=== PATIENT | female | born 1970 | race Caucasian/White ===

== ENCOUNTER 2022-07-26 09:25 | Emergency (ER) | payer OTHER, SELFPAY ==
--- NOTE | ~2022-07-26 | CT_ITS ---
EXAMINATION: CT ANGIOGRAM CHEST WITH CONTRAST CT ANGIOGRAM ABDOMEN AND PELVIS WITH CONTRAST CLINICAL INFORMATION: Chest pain with left arm radiation and jaw radiation. Hypertension. Aorta evaluation. COMPARISON: CXR from 07/26/2022 TECHNIQUE: Prior to contrast administration, noncontrast localization images were obtained. Subsequently, multidetector volumetric imaging was performed through the chest, abdomen pelvis following the administration of 80 mL Omnipaque 350 intravenous contrast. No contrast reaction reported. Sagittal, coronal, and MIP oblique sagittal reformatted images were obtained on the CT workstation, uploaded to PACS, and reviewed. This CT examination was performed using dose optimization techniques as appropriate, variously including the following: *Automated exposure control *Adjustment of mA and/or kV according to patient size (this includes techniques or standardized protocols for targeted exams where dose is matched to indication/reason for exam; i.e. extremities or head) *Use of iterative reconstruction technique DLP: Total exam dose-length product 634 mGy-cm FINDINGS: CHEST - LUNGS AND PLEURA: Small amount mucus along the tracheal wall and within mainstem bronchi. Mild centrilobular and paraseptal emphysema of the upper lobes. Mild mosaic attenuation of the lungs. The bronchial whitfield are mildly thickened. Query if there is any history of chronic cigarette smoking. No evidence of pulmonary edema, consolidation or pleural effusion. No pneumothorax. CARDIOVASCULAR: The heart size is normal. No pericardial effusion. Pulmonary arteries are normal in caliber and there are no embolic filling defects in the main, lobar or segmental vessels. The thoracic aorta has normal caliber and contour; no intramural hematoma, aneurysm or dissection. At the level of the right pulmonary artery, the ascending thoracic aorta 3.4 cm transverse diameter and descending aorta 2.8 cm transverse diameter. The great vessels arising from the top of the aortic arch are widely patent. MEDIASTINUM/LOWER NECK: No mediastinal mass. The visualized portion of the thyroid gland and esophagus are unremarkable. No pneumomediastinum. LYMPHATICS: No pathologic sized axillary, hilar or mediastinal lymph nodes. A right hilar lymph node has a short axis measurement of 0.8 cm, as measured on coronal reformatted images. CHEST WALL/BONES: No chest wall mass or hematoma. Mild spondylosis of the thoracic spine. Thoracic vertebra have normal height and alignment. No suspicious osseous lesions within the thorax. No rib or sternal fracture. Bones of the visualized shoulders are unremarkable. ABDOMEN AND PELVIS - HEPATOBILIARY: Liver has normal size, contour and attenuation. No liver mass. Gallbladder is normal. No intrahepatic or extrahepatic bile duct dilatation. PANCREAS: No edema, mass or pancreatic ductal dilatation. SPLEEN: Normal. ADRENAL GLANDS: Normal. KIDNEYS AND URETERS: Kidneys are normal in size and enhance symmetrically. No nephrolithiasis, hydronephrosis or perinephric edema. The ureters are unremarkable. There are two small simple cortical cysts of the right kidney. No renal imaging follow-up is recommended for simple cysts. BOWEL AND PERITONEUM: No dilated loops of bowel. The appendix is normal. No focal bowel wall thickening. No mesenteric fat stranding, ascites or pneumoperitoneum. ABDOMINAL WALL: Unremarkable. VESSELS: Abdominal aorta is normal in size; no aneurysm or dissection. Mild atherosclerotic calcification of the aorta. The celiac trunk and its branches are widely patent. Also, there is no significant stenosis of the SMA, JANETTE or renal arteries. There is scattered atherosclerotic plaque of iliac arteries without iliac artery aneurysm. LYMPH NODES: No pathologic sized lymph nodes in the abdomen or pelvis. No inguinal lymphadenopathy. BLADDER AND PELVIC VISCERA: Urinary bladder is normal. A contraceptive device appears to be appropriately positioned within the endometrium. No evidence of uterine or adnexal mass. No pelvic free fluid. MUSCULOSKELETAL: The lumbar vertebra have normal height and alignment, and lumbar disc spaces are maintained. Pelvic bones and proximal femurs are intact. CT/CT angio abdomen pelvis IMPRESSION: * No acute imaging findings in the chest, abdomen or pelvis. No aortic aneurysm or dissection. * No pulmonary embolism or other acute vascular abnormality. * Mild centrilobular and paraseptal emphysema of the upper lobes.
--- NOTE | ~2022-07-26 | XR_ITS ---
EXAMINATION: XR CHEST CLINICAL INFORMATION: Chest pain. COMPARISON: None TECHNIQUE: 2 views of the chest were obtained. FINDINGS: No significant abnormality is noted involving the heart, lungs, mediastinum, bony thorax or soft tissues. XR/XR chest 2V IMPRESSION: Unremarkable examination.
--- NOTE | 2022-07-26 09:26 | ECG_ITS ---
Test Reason : chest pain Blood Pressure : / mmHG Vent. Rate : 080 BPM Atrial Rate : 080 BPM P-R Int : 150 ms QRS Dur : 080 ms QT Int : 406 ms P-R-T Axes : 056 -11 049 degrees QTc Int : 468 ms Normal sinus rhythm Normal ECG No previous ECGs available Referred By: Generic ED Physician Electronically Signed By:CALVIN GARCIA
[2022-07-26 09:27] VITALS: BP 213/106; PULSE 73; RESP 20; TEMP 35.9; O2SAT 100; BMI 28.3
[2022-07-26 09:46] LABS: MANUAL DIFF FLAG NO
[2022-07-26 09:48] LABS: Basophils Absolute Auto 0.1 X10*3/uL (0.0-0.2); Basophils Percent Auto 1.6 % (0-2); Eosinophils Absolute Auto 0.2 X10*3/uL (0.0-0.4); Eosinophils Percent Auto 2.5 % (0-4); Hematocrit 47.4 % (37.0-47.0); Hemoglobin 15.6 g/dl (12.0-16.0); Imm Gran Abs Auto 0.02 X10*3/uL (0.00-0.03); Imm Gran Pct Auto 0.3 % (0.0-0.4); Lymphocytes Percent Auto 27.6 % (20-40); Mean Corpuscular HGB Conc 32.9 g/dl (31.0-35.0); Mean Corpuscular Hemoglobin 31.9 pg (27.0-33.0); Mean Corpuscular Volume 96.9 fL (80.0-98.0); Mean Platelet Volume 9.7 fL (9.4-12.3); Monocytes Absolute Auto 0.4 X10*3/uL (0.1-1.2); Monocytes Percent Auto 5.1 % (2-11); Neutrophils Absolute Auto 4.6 x10*3/uL (2.0-8.3); Neutrophils Percent Auto 62.9 % (45-73); Platelet Count 344 X10*3/uL (160-400); Red Blood Count 4.89 X10*6/uL (4.20-5.50); Red Cell Distribution Width 14.4 % (11.0-16.0); White Blood Count 7.3 X10*3/uL (4.8-10.8)
[2022-07-26 10:06] LABS: COVID-19 Test Negative (Negative); IDNOW Serial# 16C4AD1C
[2022-07-26 10:18] LABS: Alanine Aminotransferase 9 U/L (0-31); Albumin Level 4.5 g/dL (3.5-5.0); Alkaline Phosphatase 78 U/L (39-117); Anion Gap 18 (12-20); Aspartate Amino Transferase 16 U/L (5-31); Bilirubin Direct 0.2 mg/dL (0.0-0.5); Bilirubin Total 0.4 mg/dL (0.0-1.0); Blood Urea Nitrogen 11 mg/dL (9-16); Calcium 9.4 mg/dL (8.4-10.2); Carbon Dioxide 18 mmol/L (22-29); Chloride 106 mmol/L (96-108); Creatinine Clr Calc Pharmacy 78.3; Estimated Glomerular Filt Rate > 60; Glucose Random 91 mg/dL (60-115); Lipase 31 U/L (8-78); Potassium 5.3 mmol/L (3.3-5.1); Sodium 137 mmol/L (135-145); Total Protein 7.3 g/dL (6.5-8.0)
[2022-07-26 10:19] LABS: Troponin-I High Sensitivity < 3.5 ng/L (<3.5-17.0)
--- NOTE | 2022-07-26 10:35 | ED.CHESTPAIN ---
HPI - Chest Pain General Chief Complaint: Chest Pain Stated Complaint: ? Heart Attack Time Seen by Provider: 07/26/22 10:35 Source: patient Mode of arrival: ambulatory Limitations: no limitations History of Present Illness HPI narrative: Patient is a 51 year old female presenting to the emergency department today with chest pain, left arm pain, left jaw pain, and upper back pain. Patient states that starting at 0700 she began to have midsternal chest pain, pain between her shoulder blade, left arm pain, and left sided jaw pain. Patient states it started when she began walking this morning and hasn't gone away. Patient states that she took ibuprofen and that helped the pain somewhat. Patient denies any dizziness, lightheadedness, abdominal pain, nausea, vomiting, fever, chills, blurry vision, double vision, loss of vision, difficulty breathing, shortness of breath, night sweats, pain with urination, increased urinary frequency, increased urinary urgency, blood in her urine or stool, syncope or a near syncopal episode, recent trauma or falls, bowel incontinence, bladder incontinence, bowel retention, bladder retention, or any other complaints at this time. Patient states that she does not have any history of high blood pressure or cardiac disease. Patient states that she is a half a pack a day smoker. MD complaint: chest pain Onset (ago): hour(s) Prior episodes: No Pain radiation: left arm, back and jaw/teeth Severity: mild Pain scale (0-10): 3 Quality: tightness Relieving factors: nothing Exacerbating factors: nothing Treatment prior to arrival: none Risk Factors Coronary artery disease risk factors: smoking history Related Data On Oral Contraceptives: No Allergies Allergy/AdvReac Type Severity Reaction Status Date / Time valacyclovir [From Valtrex] Allergy Facial Verified 07/26/22 09:32 Swelling Review of Systems Constitutional: Constitutional: Reports no additional constitutional complaints, Denies chills, Denies fever(s) and Denies night sweats Eyes: Eyes: Reports no additional eye complaints, Denies blurry vision, Denies change in vision, Denies diplopia, Denies eye discharge, Denies loss of vision and Denies eye pain ENT: Denies dizziness Cardiovascular: Cardiovascular: Reports no additional cardiovascular complaints, Reports chest pain, Denies lightheadedness, Denies Loss of Consciousness and Denies dyspnea Respiratory: Respiratory: Reports no additional respiratory complaints and Denies dyspnea Gastrointestinal: Gastrointestinal: Reports no additional gastrointestinal complaints, Denies abdominal pain, Denies melena, Denies hematochezia, Denies change in bowel habits and Denies change in stool character Genitourinary: Genitourinary: Denies hematuria, Denies urinary frequency, Denies dysuria, Denies urinary incontinence, Denies urinary hesitancy and Denies urinary urgency Musculoskeletal: Musculoskeletal: Reports no additional musculoskeletal complaints, Reports back pain, Denies numbness and Denies tingling Neurologic: Denies dizziness, Denies loss of vision, Denies numbness and Denies tingling Psychiatric: Psychiatric: Reports no additional psychiatric complaints Endocrine: Endocrine: Reports no additional endocrine complaints Hematologic/Lymphatic: Hematologic/Lymphatic: Reports no additional hematologic/lymphatic complaints Allergic/Immunologic: Allergic/Immunologic: Reports no additional allergic/immunologic complaints PMFSH Past Medical History Attestation statement: The following information was validated with the patient. Source: old records reviewed Social History Social History Advance Directives: No Advance Directives Information Provided: Yes Physical Exam Vital Signs: Vital Signs: Last Vital Signs Temp 96.7 F L 07/26/22 09:27 Pulse 64 07/26/22 12:33 Resp 17 07/26/22 13:10 BP 184/100 H 07/26/22 12:33 Pulse Ox 100 07/26/22 12:33 O2 Del Method 07/26/22 12:33 BMI result Body Mass Index 28.3 Const: General: cooperative, no acute distress, alert and awake Nutritional Appearance: well nourished Orientation/consciousness: patient oriented x3 Limitations: no limitations HEENT: Head: Yes normal to inspection and Yes atraumatic Ears: hearing grossly normal bilaterally and external ears normal General nose exam: Normal external nose present, no nasal discharge noted and no epistaxis Face and sinus: Yes normal facial exam, No abrasion and No laceration Mouth: Normal oral and palatal mucosa present, no drooling and no muffled voice Eyes: General: appearance normal, both eyes and all related structures Periorbital: periorbital findings normal Eyelids: Yes eyelids normal Conjunctivae: conjunctivae normal Pupils: Equal, round and reactive pupils present EOM: EOMs intact bilaterally Neck: Neck: Yes normal visual inspection, Yes full ROM and Yes no lymphadenopathy Chest: Chest palpation & inspection: normal inspection of the chest Resp: Effort & Inspection: normal respiratory effort and able to speak in complete sentences Auscultation: clear to auscultation bilaterally Cardio: Rate: regular rate Rhythm: regular rhythm GI: Inspection: Yes normal to inspection Neuro: General: patient oriented x3 and moves all extremities Cranial nerves: Yes Equal, round and reactive pupils present Cognition (Neuro): normal cognition Motor exam (neuro): 5/5 motor strength present throughout Sensory Exam: Normal double simultaneous stimulation for sensation Coordination: [id number] test normal Extrem: General: Yes normal to inspection, Yes full ROM and Yes capillary refill normal Psych: Appearance: grossly normal Mental Status: mental status grossly normal Affect: normal affect Attitude: cooperative Thought process: Normal thought process present Thought content: Normal thought content present Insight: Good insight present (Psych) MDM - Chest Pain MDM Narrative Medical decision making narrative: Patient is a 51 year old female presenting to the emergency department today with chest tightness, back pain, left arm pain, and left jaw pain. Patient's physical exam was unremarkable. Patient was hypertensive throughout her stay in the department however, the patient was anxious about this non-descript pain.Patient's blood work was unremarkable, including 2 normal troponins. Patient's EKG was unremarkable. Patient's chest x-ray showed no acute process. Patient's CTA chest and abdomen also showed no acute process and no dissection. Patient's heart score is 3, which is considered low risk. I explained my physical exam findings as well as all test results to the patient. I answered all questions asked by the patient. I recommended the patient keep a blood pressure diary at home to bring with her to her follow up PCP visit. Patient received IV Morphine which she stated helped her pain significantly. I stressed the importance of the patient taking her medication as prescribed. I stressed the importance of the patient following up with her primary care provider and a [employer]. I stressed the importance of the patient returning to the emergency department immediately if her symptoms were to worsen or if she were to develop any dizziness, shortness of breath, difficulty breathing, chest pain, blurry vision, loss of vision, nausea, vomiting, abdominal pain, fever, chills, back pain, or any other complaints. Patient verbalized agreement and understanding with this treatment plan and discharge. Medical Records Data Attestation: I reviewed the patient's medical records. Lab Data Attestation: I reviewed the patient's lab results. Result diagrams: 07/26/22 09:41 07/26/22 09:41 Labs: Lab Results 07/26/22 07/26/22 07/26/22 Range/Units 09:41 09:41 09:41 WBC 7.3 (4.8-10.8) X10*3/uL RBC 4.89 (4.20-5.50) X10*6/uL Hgb 15.6 (12.0-16.0) g/dl Hct 47.4 H (37.0-47.0) % MCV 96.9 (80.0-98.0) fL MCH 31.9 (27.0-33.0) pg MCHC 32.9 (31.0-35.0) g/dl RDW 14.4 (11.0-16.0) % Plt Count 344 (160-400) X10*3/uL MPV 9.7 (9.4-12.3) fL Immature Gran % (Auto) 0.3 (0.0-0.4) % Neut % (Auto) 62.9 (45-73) % Lymph % (Auto) 27.6 (20-40) % [place] % (Auto) 5.1 (2-11) % Eos % (Auto) 2.5 (0-4) % Baso % (Auto) 1.6 (0-2) % Lymph # (Auto) 2.0 (1.2-4.9) X10*3/uL [place] # (Auto) 0.4 (0.1-1.2) X10*3/uL Eos # (Auto) 0.2 (0.0-0.4) X10*3/uL Baso # (Auto) 0.1 (0.0-0.2) X10*3/uL Abs Immat Gran (auto) 0.02 (0.00-0.03) X10*3/uL Absolute Neuts (auto) 4.6 (2.0-8.3) x10*3/uL Absolute Nucleated RBC 0.000 (0.0-0.012) X10*3/uL Nucleated RBC % (auto) 0.0 (0.0-0.2) /100WBC Sodium 137 (135-145) mmol/L Potassium 5.3 H (3.3-5.1) mmol/L Chloride 106 (96-108) mmol/L Carbon Dioxide 18 L (22-29) mmol/L Anion Gap 18 (12-20) BUN 11 (9-16) mg/dL Creatinine 0.82 (0.5-1.4) mg/dL Estim Creat Clear Calc 78.3 Estimated GFR > 60 Random Glucose 91 (60-115) mg/dL Calcium 9.4 (8.4-10.2) mg/dL Total Bilirubin 0.4 (0.0-1.0) mg/dL Direct Bilirubin 0.2 (0.0-0.5) mg/dL AST 16 (5-31) U/L ALT 9 (0-31) U/L Alkaline Phosphatase 78 (39-117) U/L Troponin I High Sens < 3.5 (<3.5-17.0) ng/L Total Protein 7.3 (6.5-8.0) g/dL Albumin 4.5 (3.5-5.0) g/dL Lipase 31 (8-78) U/L COVID-19 (BALJIT) (Negative) COVID-19 Clin Com 07/26/22 07/26/22 Range/Units 09:41 12:30 WBC (4.8-10.8) X10*3/uL RBC (4.20-5.50) X10*6/uL Hgb (12.0-16.0) g/dl Hct (37.0-47.0) % MCV (80.0-98.0) fL MCH (27.0-33.0) pg MCHC (31.0-35.0) g/dl RDW (11.0-16.0) % Plt Count (160-400) X10*3/uL MPV (9.4-12.3) fL Immature Gran % (Auto) (0.0-0.4) % Neut % (Auto) (45-73) % Lymph % (Auto) (20-40) % [place] % (Auto) (2-11) % Eos % (Auto) (0-4) % Baso % (Auto) (0-2) % Lymph # (Auto) (1.2-4.9) X10*3/uL [place] # (Auto) (0.1-1.2) X10*3/uL Eos # (Auto) (0.0-0.4) X10*3/uL Baso # (Auto) (0.0-0.2) X10*3/uL Abs Immat Gran (auto) (0.00-0.03) X10*3/uL Absolute Neuts (auto) (2.0-8.3) x10*3/uL Absolute Nucleated RBC (0.0-0.012) X10*3/uL Nucleated RBC % (auto) (0.0-0.2) /100WBC Sodium (135-145) mmol/L Potassium (3.3-5.1) mmol/L Chloride (96-108) mmol/L Carbon Dioxide (22-29) mmol/L Anion Gap (12-20) BUN (9-16) mg/dL Creatinine (0.5-1.4) mg/dL Estim Creat Clear Calc Estimated GFR Random Glucose (60-115) mg/dL Calcium (8.4-10.2) mg/dL Total Bilirubin (0.0-1.0) mg/dL Direct Bilirubin (0.0-0.5) mg/dL AST (5-31) U/L ALT (0-31) U/L Alkaline Phosphatase (39-117) U/L Troponin I High Sens < 3.5 (<3.5-17.0) ng/L Total Protein (6.5-8.0) g/dL Albumin (3.5-5.0) g/dL Lipase (8-78) U/L COVID-19 (BALJIT) Negative (Negative) COVID-19 Clin Com See Note Imaging Data Chest x-ray: Attestation: I personally reviewed and interpreted this imaging study as follows: My impression: No acute process. Radiologist's impression: EXAMINATION: XR CHEST CLINICAL INFORMATION: Chest pain. COMPARISON: None TECHNIQUE: 2 views of the chest were obtained. FINDINGS: No significant abnormality is noted involving the heart, lungs, mediastinum, bony thorax or soft tissues. XR/XR chest 2V IMPRESSION: Unremarkable examination. Dictated By: Isaias Rosario Signed By: Electronically signed by Kong 07/26/22 1037 CTA chest and abdomen/pelvis: Attestation: I personally reviewed and interpreted this imaging study as follows: My impression: No acute process. Radiologist's impression: EXAMINATION: CT ANGIOGRAM CHEST WITH CONTRAST CT ANGIOGRAM ABDOMEN AND PELVIS WITH CONTRAST CLINICAL INFORMATION: Chest pain with left arm radiation and jaw radiation. Hypertension. Aorta evaluation. COMPARISON: CXR from 07/26/2022? TECHNIQUE: Prior to contrast administration, noncontrast localization images were obtained. Subsequently, multidetector volumetric imaging was performed through the chest, abdomen pelvis following the administration of 80 mL Omnipaque 350 intravenous contrast. No contrast reaction reported. Sagittal, coronal, and MIP oblique sagittal reformatted images were obtained on the CT workstation, uploaded to PACS, and reviewed.? This CT examination was performed using dose optimization techniques as appropriate, variously including the following: *Automated exposure control *Adjustment of mA and/or kV according to patient size (this includes techniques or standardized protocols for targeted exams where dose is matched to indication/reason for exam; i.e. extremities or head) *Use of iterative reconstruction technique DLP: Total exam dose-length product 634 mGy-cm FINDINGS: CHEST - LUNGS AND PLEURA:? Small amount mucus along the tracheal wall and within mainstem bronchi. Mild centrilobular and paraseptal emphysema of the upper lobes. Mild mosaic attenuation of the lungs. The bronchial whitfield are mildly thickened. Query if there is any history of chronic cigarette smoking. No evidence of pulmonary edema, consolidation or pleural effusion. No pneumothorax. CARDIOVASCULAR: The heart size is normal. No pericardial effusion. Pulmonary arteries are normal in caliber and there are no embolic filling defects in the main, lobar or segmental vessels. The thoracic aorta has normal caliber and contour; no intramural hematoma, aneurysm or dissection. At the level of the right pulmonary artery, the ascending thoracic aorta 3.4 cm transverse diameter and descending aorta 2.8 cm transverse diameter. The great vessels arising from the top of the aortic arch are widely patent. MEDIASTINUM/LOWER NECK: No mediastinal mass. The visualized portion of the thyroid gland and esophagus are unremarkable. No pneumomediastinum. LYMPHATICS: No pathologic sized axillary, hilar or mediastinal lymph nodes. A right hilar lymph node has a short axis measurement of 0.8 cm, as measured on coronal reformatted images. CHEST WALL/BONES: No chest wall mass or hematoma. Mild spondylosis of the thoracic spine. Thoracic vertebra have normal height and alignment. No suspicious osseous lesions within the thorax. No rib or sternal fracture. Bones of the visualized shoulders are unremarkable. ABDOMEN AND PELVIS - HEPATOBILIARY: Liver has normal size, contour and attenuation. No liver mass. Gallbladder is normal. No intrahepatic or extrahepatic bile duct dilatation. PANCREAS: No edema, mass or pancreatic ductal dilatation. SPLEEN: Normal. ADRENAL GLANDS: Normal. KIDNEYS AND URETERS: Kidneys are normal in size and enhance symmetrically. No nephrolithiasis, hydronephrosis or perinephric edema. The ureters are unremarkable. There are two small simple cortical cysts of the right kidney. No renal imaging follow-up is recommended for simple cysts. BOWEL AND PERITONEUM: No dilated loops of bowel. The appendix is normal. No focal bowel wall thickening. No mesenteric fat stranding, ascites or pneumoperitoneum. ABDOMINAL WALL: Unremarkable. VESSELS: Abdominal aorta is normal in size; no aneurysm or dissection. Mild atherosclerotic calcification of the aorta. The celiac trunk and its branches are widely patent. Also, there is no significant stenosis of the SMA, JANETTE or renal arteries. There is scattered atherosclerotic plaque of iliac arteries without iliac artery aneurysm. LYMPH NODES: No pathologic sized lymph nodes in the abdomen or pelvis. No inguinal lymphadenopathy. BLADDER AND PELVIC VISCERA: Urinary bladder is normal. A contraceptive device appears to be appropriately positioned within the endometrium. No evidence of uterine or adnexal mass. No pelvic free fluid. MUSCULOSKELETAL: The lumbar vertebra have normal height and alignment, and lumbar disc spaces are maintained. Pelvic bones and proximal femurs are intact. CT/CT angio abdomen pelvis IMPRESSION: *? No acute imaging findings in the chest, abdomen or pelvis. No aortic aneurysm or dissection. *? No pulmonary embolism or other acute vascular abnormality. *? Mild centrilobular and paraseptal emphysema of the upper lobes.? Dictated By: Herrera Mancuso MD Signed By: Electronically signed by Herrera Mancuso MD 07/26/22 1246 ECG Data ECG #1: Attestation: I personally reviewed and interpreted this ECG as follows: ECG interpretation date: 07/26/22 ECG interpretation time: 09:28 Prior ECG tracings: not available for review Interpretation: Vent. Rate: 080 BPM ? ? Atrial Rate: 080 BPM P-R Int: 150 ms? QRS Dur: 080 ms QT Int: 406 ms ? ? ? P-R-T Axes: 056 -11 049 degrees QTc Int: 468 ms ? Normal sinus rhythm Normal ECG No previous ECGs available DD/ 7 Discharge Plan Discharge Clinical Impression: Atypical chest pain Patient Disposition: Home, Self-Care Instructions: Chest Pain (DC) Additional Instructions: Follow up with your primary care provider and a [employer]. Return to the emergency department immediately if your symptoms worsen or if you develop any dizziness, shortness of breath, difficulty breathing, chest pain, blurry vision, loss of vision, nausea, vomiting, abdominal pain, fever, chills, back pain, or any other complaints. [place]: [facility] [place] (Call to establish and follow up with a [employer].) [facility] [place] Family Medicine [Provider Group] (Call to establish and follow up with a primary care provider. If you already have a primary care provider, please follow up with them. ) [facility] [place] [facility] [Provider Group] (Call to establish and follow up with a primary care provider. If you already have a primary care provider, please follow up with them. ) [facility] [place] [facility] [Provider Group] (Call to establish and follow up with a primary care provider. If you already have a primary care provider, please follow up with them. ) Interventions: ED Discharge Assessment Last Done: 07/26/22 14:02 Discharge Date/Time: 07/26/22 14:02 Print Language: Pashto
[2022-07-26] MEDS: iohexoL 350 MG/ML 100 ML INFUS..BTL IV (11:34)
[2022-07-26 12:33] VITALS: BP 184/100; PULSE 64; RESP 16; O2SAT 100
[2022-07-26 13:01] LABS: Troponin-I High Sensitivity < 3.5 ng/L (<3.5-17.0)
[2022-07-26 13:10] VITALS: RESP 17
[2022-07-26] MEDS: ondansetron HCL 4 MG/2 ML VIAL IVPUSH (13:10)
[2022-07-26] MEDS: Morphine Sulfate 4 MG/ML CARTRIDGE IVPUSH (13:10)
== END 2022-07-26 14:02 | disposition home or self-care (01) ==
PROVIDERS: Physician Assistant Medical; Emergency Provider Emergency Medicine Emergency Medical Services
DX: R07.89 Other chest pain (principal); Z20.822 Contact with and (suspected) exposure to COVID-19
CPT/HCPCS: 36415; 71046; 71275; 74174; 80048; 80076; 83690; 84484; 85025; 87635; 93005; 96374; 96375; 99284; J2270; J2405; Q9967

== ENCOUNTER → 2022-10-31 14:05 | Outpatient (BNVA) | payer OTHER, SELFPAY | PROVIDERS: PCP Internal Medicine Hematology & Oncology; Visit Provider Nurse Practitioner Family | DX: R07.89 Other chest pain (principal) ==

== ENCOUNTER → 2022-11-06 07:52 | Outpatient (REF) | payer OTHER, SELFPAY ==
--- NOTE | 2022-11-06 08:01 | CA_ITS ---
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 Normal LV systolic function with grade 1 diastolic dysfunction 2. Normal cardiac valvular Doppler 3. Normal RV systolic pressure 4. No pericardial effusion Findings Left Ventricle Normal left ventricular size, thickness, and systolic function. The visually estimated ejection fraction is between 65-70%. Spectral Doppler is indicative of an impaired relaxation filling pattern. E/E prime ratio is <8, consistent with normal filling pressures. Evidence suggests grade I (mild) diastolic dysfunction. Peak GLS is -16.7%, which is reduced Right Ventricle Normal right ventricular cavity size and systolic function. Atria Both atria are normal in size. There is no evidence of interatrial shunt. Aortic Valve Normal aortic valve structure and function. There is no aortic valve stenosis. There is no aortic valve regurgitation. Mitral Valve Normal mitral valve structure and function. There is trace mitral valve regurgitation. There is no mitral valve stenosis. Pulmonic Valve The pulmonic valve is likely normal. Tricuspid Valve Normal tricuspid valve structure. There is trace tricuspid valve regurgitation. The right ventricular systolic pressure is normal. The right ventricular systolic pressure is 21 mmHg. Normal right atrial pressure. There is no evidence of pulmonary hypertension. Great Vessels All visible segments of the aorta are normal in size. The pulmonary artery was not well visualized. Venous The inferior vena cava is normal in size and collapses greater than 50% with inspiration. Pericardium/Pleural There is no evidence of pericardial effusion. Prior Study Comparison No prior study available for comparison. Measurements 2D Linear Measurements IVSd: 0.89 0.6-0.9/0.6-1.0 cm LVIDd: 4.15 3.9-5.3/4.2-5.9 cm LVIDd Index: 2.37 2.4-3.2/2.2-3.1 cm/m2 LVIDs: 2.81 2.0-3.6 cm LVPWd: 0.77 0.7-1.1 cm LA Diam: 3.00 2.7-3.8/3.0-4.0 cm LAIDs Index: 1.71 1.5-2.3 cm/m2 LV Mass: 130.37 67-162/88-224 g LV Mass Index: 74.50 43-95/49-115 g/m2 LVOT Diam: 2.20 3.0+(-)1.3 cm 2D Systolic Function EF 4C: 70.90 >55% EF 2C: 64.20 >55% EF BiP: 68.20 >55% Mitral Valve MV Pk E: 0.65 MV PK A: 0.66 MV Decel Time: 296.00 E/A: 1.00 E'Lateral: 11.70 E'Medial: 7.83 E/E' Med: 8.20 E/E' Lat: 5.50 PHT: 87.00 MVA PHT: 2.53 Decel [place]: 2.18 Aortic Valve AoV Pk Serafin: 1.29 AoV Mn Serafin: 0.93 AoV VTI: 0.27 AoV Pk Grad: 7.00 Aov Mn Grad: 4.00 KALIN Cont.VTI: 2.97 LVOT LVOT Pk Serafin: 1.20 LVOT Mn Serafin: 0.72 LVOT VTI: 0.21 LVOT Pk Grad: 6.00 LVOT Mn Grad: 2.00 LVOT Diam: 2.20 LVOT Area: 3.80 Diastolic Function MV Pk E: 0.65 MV Pk A: 0.66 E/A: 1.00 E'Medial: 7.83 E/E' Med: 8.20 E' Laterial: 11.70 E/E' Lat: 5.50 Right Ventricle TAPSE (mm): 17.70 TVS' Serafin: 10.30 Tricuspid Valve TR Pk Serafin: 2.12 TR Pk Grad: 18.00 RA Press: 3.00 RVSP: 21.00 Great Vessels Aorta Sinus of Valsalva: 3.29 2.0-3.[address] [place]: 2.53 1.7-3.4 cm Ao Asc: 3.10 2.1-3.4 cm Ao Arch: 2.50 Updated in Other Vendor System with Status of Final Gio Mccauley MD electronically signed on 11/07/2022 1:12:55 PM with status of Final
== END ==
LOC: HO.CARD 07:52
PROVIDERS: Visit Provider Nurse Practitioner Family
DX: R07.89 Other chest pain (principal); I10 Essential (primary) hypertension; F17.200 Nicotine dependence, unspecified, uncomplicated
CPT/HCPCS: 93306; 93356

== ENCOUNTER 2024-01-29 23:02 | Emergency (ER) | payer OTHER, SELFPAY ==
[2024-01-29 23:08] VITALS: BP 159/95; PULSE 102; RESP 16; TEMP 37.1; O2SAT 96; BMI 28.8
[2024-01-29 23:29] LABS: MANUAL DIFF FLAG NO
[2024-01-29 23:30] LABS: Basophils Absolute Auto 0.1 X10*3/uL (0.0-0.2); Eosinophils Absolute Auto 0.4 X10*3/uL (0.0-0.4); Eosinophils Percent Auto 3.1 % (0-4); Hematocrit 42.3 % (37.0-47.0); Hemoglobin 14.2 g/dl (12.0-16.0); Imm Gran Abs Auto 0.03 X10*3/uL (0.00-0.03); Imm Gran Pct Auto 0.3 % (0.0-0.4); Lymphocytes Absolute Auto 2.9 X10*3/uL (1.2-4.9); Lymphocytes Percent Auto 24.3 % (20-40); Mean Corpuscular HGB Conc 33.6 g/dl (31.0-35.0); Mean Corpuscular Hemoglobin 32.1 pg (27.0-33.0); Mean Corpuscular Volume 95.5 fL (80.0-98.0); Mean Platelet Volume 9.4 fL (9.4-12.3); Monocytes Absolute Auto 0.7 X10*3/uL (0.1-1.2); Monocytes Percent Auto 6.2 % (2-11); Neutrophils Absolute Auto 7.8 x10*3/uL (2.0-8.3); Neutrophils Percent Auto 65.1 % (45-73); Platelet Count 340 X10*3/uL (160-400); Red Blood Count 4.43 X10*6/uL (4.20-5.50); Red Cell Distribution Width 13.8 % (11.0-16.0); White Blood Count 11.9 X10*3/uL (4.8-10.8)
== END 2024-01-30 01:26 | disposition left against medical advice (07) ==
PROVIDERS: Emergency Provider Emergency Medicine; PCP Internal Medicine
DX: K91.840 Postprocedural hemorrhage of a digestive system organ or structure following a digestive system procedure (principal)
CPT/HCPCS: 36415; 85025; 99281; 99283

== ENCOUNTER 2024-10-15 12:48 | Outpatient (REF) | payer OTHER, SELFPAY | END 2024-10-15 12:49 | disposition home or self-care (01) | LOC: HO.SH 12:48 | PROVIDERS: Visit Provider Physician Assistant | DX: Z01.118 Encounter for examination of ears and hearing with other abnormal findings (principal); H93.293 Other abnormal auditory perceptions, bilateral | CPT/HCPCS: 92552; 92556 ==